=== PATIENT | female | born 2000 | race Caucasian/White ===

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

== ENCOUNTER → 2019-04-17 | Outpatient (CLI) | payer BC ==
--- NOTE | 2019-04-17 08:47 | US ---
EXAMINATION TYPE: US pelvic complete DATE OF EXAM: 04/17/2019 COMPARISON: NONE CLINICAL HISTORY: R10.9 Abdominal Pain. Intermittent abdomen pain x couple years TECHNIQUE: . Transabdominal sonographic images of the pelvis were acquired. Date of LMP: 04/09/2019 EXAM MEASUREMENTS: Uterus: 6.1 x 2.4 x 3.3 cm Endometrial Stripe: 0.4 cm Right Ovary: 1.9 x 1.0 x 1.8 cm Left Ovary: 1.9 x 1.1 x 1.9 cm 1. Uterus: anteverted 2. Endometrium: wnl 3. Right Ovary: wnl 4. Left Ovary: wnl 5. Bilateral Adnexa: wnl 6. Posterior cul-de-sac: small amount of free fluid IMPRESSION: Scant amount of free fluid in the posterior cul-de-sac, likely physiologic in nature. Oth erwise unremarkable pelvic ultrasound.
--- NOTE | 2019-04-17 10:13 | US ---
EXAMINATION TYPE: US abdomen complete DATE OF EXAM: 04/17/2019 COMPARISON: NONE CLINICAL HISTORY: R10.9 Abdominal Pain. Intermittent abdomen pain x couple years, gets worse after ea ting EXAM MEASUREMENTS: Liver Length: 15.6 cm Gallbladder Wall: 0.1 cm CBD: 0.5 cm Spleen: 11.2 cm Right Kidney: 11.8 x 4.0 x 4.6 cm Left Kidney: 11.1 x 5.4 x 5.4 cm Pancreas: visualized portions wnl, limited by overlying midline bowel gas Liver: wnl Gallbladder: Numerous gallstones layering dependently within the gallbladder creating shadowing. No pericholecystic fluid or gallbladder wall thickening. Evidence for sonographic Dodson's sign: no CBD: wnl Spleen: wnl Right Kidney: wnl Left Kidney: wnl Upper IVC: wnl Abd Aorta: wnl The liver is homogenous. The intrahepatic portion of the IVC and proximal abdominal aorta are within normal limits. Common bile duct is unremarkable. The visualized portions of the pancreas are homoge nous. The spleen is unremarkable. Kidneys are symmetric and free of hydronephrosis. No renal lesio ns are seen. IMPRESSION: Numerous gallstones without current evidence of acute cholecystitis.
== END | disposition home or self-care (01) ==
LOC: RADUSMAIN 07:55
PROVIDERS: ATTEND Family Medicine
DX: K80.20 Calculus of gallbladder without cholecystitis without obstruction (principal); R10.9 Unspecified abdominal pain
CPT/HCPCS: 76700; 76856

== ENCOUNTER → 2019-09-13 | Outpatient (CLI) | payer BC ==
[2019-09-13 18:28] LABS: ALT 25 U/L (8-44); AST 21 U/L (13-35); Albumin/Globulin Ratio 2.28 (1.60-3.17); Alkaline Phosphatase 45 U/L (41-126); Bilirubin, Conjugated <0.20 mg/dL (0.20-0.40); Globulin 1.8 g/dL (1.6-3.3); Total Bilirubin 0.3 mg/dL (0.3-1.2); Total Protein 5.9 g/dL (6.2-8.2)
== END | disposition home or self-care (01) ==
LOC: LABWHC1 11:29
PROVIDERS: ATTEND Nurse Practitioner
DX: K80.20 Calculus of gallbladder without cholecystitis without obstruction (principal)
CPT/HCPCS: 36415; 80076

== ENCOUNTER → 2021-12-31 | Outpatient (CLI) | payer BC ==
[2021-12-31 20:23] LABS: Erythrocyte Sedimentation Rate 30 mm/Hr (0-20)
[2021-12-31 21:12] LABS: HCT 42.5 % (37.2-46.3); HGB 13.1 g/dL (12.0-15.0); MCH 27.3 pg (27.0-32.0); MCHC 30.8 g/dL (32.0-37.0); MCV 88.7 fL (80.0-97.0); Mean Platelet Volume 12.9 fL (9.5-12.2); NRBC Per 100 WBC 0 /100 WBCS (0.0-0.0); Platelet Count 236 X 10*3/uL (140-440); RBC 4.79 X 10*6/uL (4.10-5.20); RDW 13.2 % (11.5-14.5); WBC 7.38 X 10*3/uL (4.50-10.00)
[2021-12-31 22:05] LABS: ALT 33 U/L (8-44); AST 24 U/L (13-35); African American GFR (CKD) 142.7 (60.0-200.0); Albumin 4.2 g/dL (3.8-4.9); Albumin/Globulin Ratio 1.35 (1.60-3.17); Alkaline Phosphatase 63 U/L (41-126); Blood Urea Nitrogen 8.8 mg/dL (9.0-27.0); Calcium 9.2 mg/dL (8.7-10.3); Carbon Dioxide 21.2 mmol/L (20.0-27.5); Chloride 103 mmol/L (96-109); Globulin 3.1 g/dL (1.6-3.3); Glucose 79 mg/dL (70-110); Non-African American GFR(CKD) 123.1 (60.0-200.0); Potassium 3.8 mmol/L (3.5-5.5); Sodium 138 mmol/L (135-145); Total Bilirubin <0.15 mg/dL (0.30-1.20); Total Protein 7.3 g/dL (6.2-8.2)
[2022-01-01 01:39] LABS: Gliadin AB IgA, Deaminated NEGATIVE (NEGATIVE); Gliadin AB IgA, Unit 0.2 U/mL; Gliadin AB IgG, Deaminated NEGATIVE (NEGATIVE); Gliadin AB IgG, Unit <0.4 U/mL
== END | disposition home or self-care (01) ==
LOC: LABWHC1 13:36
PROVIDERS: ATTEND Nurse Practitioner Family
DX: R19.4 Change in bowel habit (principal)
CPT/HCPCS: 36415; 80053; 82656; 83516; 85027; 85652; 86140

== ENCOUNTER 2022-02-25 10:17 | Day surgery (SDC) | payer BC ==
[2022-02-24 08:38] VITALS: BMI 37.2
[~2022-02-25 10:17] MED LIST: LACTATED RINGERS 1,000 ML IV SCH; LIDOCAINE 1% (10MG/ML) FOR IV START INTRADERMA PRN
[2022-02-25 11:09] VITALS: TEMP 97.5
[2022-02-25] MEDS ORDERED: fentaNYL (PF) 50 MCG/ML 2 ML AMP ONE (11:56)
[2022-02-25] MEDS ORDERED: PROPOFOL 10 MG/ML 20 ML VIAL IV ONE (11:56)
[2022-02-25] MEDS ORDERED: MIDAZOLAM 2 MG/2 ML VIAL ONE (11:56)
--- NOTE | 2022-02-25 12:07 | P.PCN ---
Date of Procedure: 02/25/22 Procedure(s) Performed: BRIEF HISTORY: Patient is a 22-year-old pleasant female scheduled for an elective colonoscopy as a part of evaluation of chronic diarrhea for the last one half years duration. She has bowel movements anywhere from 6-8 a day which are loose to watery in consistency but no blood in the stool. PROCEDURE PERFORMED: Colonoscopy random biopsy. PREOPERATIVE DIAGNOSIS: Chronic diarrhea of 2 years duration. IV sedation per Anesthesia. PROCEDURE: After informed consent was obtained, the patient, was brought into the endoscopy unit. IV sedation was administered by Anesthesia under continuous monitoring. Digital rectal examination was normal. Initially the Olympus CF-160 flexible video colonoscope was then inserted in the rectum, gradually advanced into the cecum without any difficulty. Careful examination was performed as the scope was gradually being withdrawn. Ileocecal valve and the appendiceal orifice were visualized and appeared normal. Prep was excellent. Terminal ileum was intubated and 20 cm visualized appeared normal. Biopsies were done from this area. Mucosa of the cecum, ascending colon, transverse colon, descending colon, sigmoid colon, and rectum appeared normal. Biopsies were done from ascending and descending colon to rule out microscopic/collagenous colitis. Retroflexion was performed in the rectum and no lesions were seen. The patient tolerated the procedure well. IMPRESSION: Normal-appearing colon from rectum to cecum with no evidence of colorectal neoplasia Normal-appearing terminal ileum . RECOMMENDATIONS: Findings of this examination were discussed with the patient as well as a family. She was advised to follow with the biopsy results. She'll be seen in office in 3-4 weeks.
[2022-02-25] MEDS ORDERED: LACTATED RINGERS 1,000 ML IV ONE (12:12)
[2022-02-25 12:17] VITALS: RESP 18
[2022-02-25 12:31] VITALS: BP 124/73; PULSE 72
== END 2022-02-25 12:48 | disposition home or self-care (01) ==
LOC: ORWHC2ENDO 10:17
PROVIDERS: ATTEND Internal Medicine Gastroenterology
DX: K52.9 Noninfective gastroenteritis and colitis, unspecified (principal); K21.9 Gastro-esophageal reflux disease without esophagitis; Z91.040 Latex allergy status; F12.90 Cannabis use, unspecified, uncomplicated; Z79.899 Other long term (current) drug therapy
CPT/HCPCS: 81025; 88305; 45380; J2250; J3010; J2704

== ENCOUNTER → 2022-06-14 | Outpatient (CLI) | payer BC ==
--- NOTE | 2022-06-14 08:54 | US ---
EXAMINATION TYPE: US pelvic complete DATE OF EXAM: 06/14/2022 COMPARISON: 04/17/2019 CLINICAL HISTORY: N92.6 IRREGULAR MENSTRUATION. Light periods for 1 year. TECHNIQUE: Transabdominal (TA). Transabdominal sonographic images of the pelvis were acquired. Ricardo e of LMP: 04/25/2022 EXAM MEASUREMENTS: Uterus: 5.2 x 1.9 x 2.9 cm Endometrial Stripe: 0.34 cm Right Ovary: 2.2 x 1.2 x 1.3 cm Left Ovary: 2.1 x 1.2 x 1.0 cm 1. Uterus: Anteverted wnl 2. Endometrium: wnl 3. Right Ovary: wnl 4. Left Ovary: wnl 5. Bilateral Adnexa: wnl 6. Posterior cul-de-sac: wnl Heterogeneous anteverted uterus. Endometrial stripe measures within normal limits. No free fluid. Both ovaries seen and lower limits of normal in size. No suspicious ovarian or adnexal mass. IMPRESSION: Unremarkable study.
== END | disposition home or self-care (01) ==
LOC: RADUSWWP 07:32
PROVIDERS: ATTEND Family Medicine
DX: N92.6 Irregular menstruation, unspecified (principal)
CPT/HCPCS: 76856